=== PATIENT | male | born 1940 | race Caucasian/White ===

== ENCOUNTER 2017-03-19 17:06 | Observation (INO) | payer OTHER ==
[~2017-03-19] VITALS: Ht 185.4 cm; Wt 106.4 kg
[~2017-03-19 17:06] MED LIST: ACTOS30 MG PO; ALLEGRA180 MG PO; AMBIEN10 MG PO; AMLODIPINE BESYL5 MG PO; ANUSOL HC,ANUCO25 MG PR; ASPIRIN81 M1 PO; ATENOLOL25 M1 PO; Aspirin E.C. PO; BENAZEPRIL HCL PO; BENAZEPRIL HCL40 MG PO; CARDURA2 M1 PO; CARDURA2 MG PO; CARDURA4 MG PO; CARVEDILOL25 MG PO; COREG6.25 MG PO; COSOPT EYE DROPS5 ML BOTH EYES; Carvedilol PO; Combigan Ophth Soln; DOXYCYCLINE HYCLATE PO; GLUCOPHAGE500 MG PO; HALFPRIN162 MG PO; JOCK ITCH15 GM TP; LO-DOSE ASPIRIN81 M1 PO; LOTENSIN40 MG PO; LYRICA50 MG PO; METFORMIN HCL500 MG PO; Metformin HCl PO; Norvasc PO; PAROXETINE HCL PO; PAROXETINE HCL20 MG PO; PAROXETINE HCL40 MG PO; PAXIL20 MG PO; PAXIL40 MG PO; PLAVIX75 MG PO; PRAVACHOL40 MG PO; PRAVACHOL80 MG PO; PRAVASTATIN SOD40 MG PO; Pravastatin Sodium PO; SOMA350 MG PO; VALIUM5 MG PO; Valium PO
[2017-03-19 18:57] LABS: HEMATOCRIT 41.6 % (38.0-50.0); HEMOGLOBIN 14.2 G/DL (12.5-16.6); MCH 32.6 PG (29.0-34.0); MCHC 34.1 G/DL (30.0-36.0); MCV 95.6 FL (86-99); PLATELET COUNT 134 K/uL (156-360); RBC DIS.WIDTH-CV 13.5 % (11.8-14.6); RBC DIS.WIDTH-SD 47.5 % (39-53); RED BLOOD COUNT 4.35 M/uL (4.00-5.50); WHITE BLOOD COUNT 7.4 K/uL (4.1-10.2)
[2017-03-19 19:09] LABS: CHLORIDE 104 mEq/L (99-109); POTASSIUM 4.7 mEq/L (3.7-5.4); SODIUM 140 mEq/L (136-147)
[2017-03-19 19:11] LABS: GLUCOSE 103 mg/dL (70-99)
[2017-03-19 19:13] LABS: TOTAL BILIRUBIN 0.8 mg/dL (0.0-1.0)
[2017-03-19 19:14] LABS: ALKALINE PHOSPHATASE 58 IU/L (3-129)
[2017-03-19 19:15] LABS: CREATININE 1.7 mg/dL (0.6-1.3); GFR ESTIMATE (CALCULATED) 42 mL/min/ (58.99-99999)
[2017-03-19 19:16] LABS: AST (GOT) 34 IU/L (2-34); UREA NITROGEN (BUN) 26 mg/dL (9-23)
[2017-03-19 19:17] LABS: ALT (GPT) 33 IU/L (3-49)
[2017-03-19 19:18] LABS: LIPASE 33 U/L (1.0-51.0)
[2017-03-19 19:39] LABS: APPEARANCE CLEAR ((CLEAR)); BILIRUBIN NEGATIVE; BLOOD NEGATIVE; COLOR YELLOW ((YELLOW)); GLUCOSE (STRIP) NEGATIVE; KETONES NEGATIVE; LEUKOCYTES NEGATIVE; NITRITE NEGATIVE; PROTEIN (STRIP) 30; SPECIFIC GRAVITY 1.021 (1.000-1.030); UCUL ADDED? NO; UROBILINOGEN 0.2 MG/DL (0.2-1.0)
[2017-03-19] MEDS ORDERED: CARVEDILOL25 MG PO (21:14)
[2017-03-19] MEDS ORDERED: ADULT ASPIRIN R81 MG PO (21:15)
[2017-03-19] MEDS ORDERED: METFORMIN HCL500 MG PO (21:15)
[2017-03-19] MEDS ORDERED: ELIQUIS5 MG PO (21:16)
[2017-03-19] MEDS ORDERED: PRESERVISION T1 EACH PO (21:16)
[2017-03-19] MEDS ORDERED: VITAMIN D PO (21:16)
[2017-03-19] MEDS ORDERED: ZYRTEC10 M3 PO (21:16)
[2017-03-20 01:52] LABS: HEMATOCRIT 39.3 % (38.0-50.0); HEMOGLOBIN 13.5 G/DL (12.5-16.6); MCV 94.2 FL (86-99)
[2017-03-20 02:03] LABS: CHLORIDE 108 mEq/L (99-109); POTASSIUM 3.8 mEq/L (3.7-5.4); SODIUM 139 mEq/L (136-147)
[2017-03-20 02:05] LABS: GLUCOSE 102 mg/dL (70-99)
[2017-03-20 02:08] LABS: CREATININE 1.4 mg/dL (0.6-1.3); GFR ESTIMATE (CALCULATED) 53 mL/min/ (58.99-99999)
[2017-03-20 02:09] LABS: UREA NITROGEN (BUN) 23 mg/dL (9-23)
[2017-03-20 02:23] VITALS: BP 175/82
[2017-03-20 07:45] VITALS: BP 182/88
[2017-03-20 09:36] LABS: HEMOGLOBIN 13.8 G/DL (12.5-16.6); MCH 32.2 PG (29.0-34.0); MCHC 33.7 G/DL (30.0-36.0); MCV 95.6 FL (86-99); PLATELET COUNT 127 K/uL (156-360); RBC DIS.WIDTH-CV 13.6 % (11.8-14.6); RBC DIS.WIDTH-SD 48.3 % (39-53); RED BLOOD COUNT 4.29 M/uL (4.00-5.50); WHITE BLOOD COUNT 4.8 K/uL (4.1-10.2)
[2017-03-20 10:09] LABS: CHLORIDE 105 MEQ/L (99-109); CREATININE 1.5 MG/DL (0.6-1.3); GFR ESTIMATE (CALCULATED) 48 mL/min/ (58.99-99999); GLUCOSE 115 mg/dL (70-99); POTASSIUM 4.1 MEQ/L (3.7-5.4); SODIUM 141 MEQ/L (136-147); UREA NITROGEN (BUN) 22 mg/dL (9-23)
[2017-03-20 11:56] VITALS: BP 156/78
[2017-03-20] MEDS ORDERED: ANUSOL HC,ANUCO25 MG PR (12:43)
== END 2017-03-20 14:15 | disposition home or self-care (01) ==
LOC: RME 17:06 → EME 17:06 → EDOF 03-20 01:20 → ENRESERV 03-20 01:32 → 5WEST 03-20 02:04
PROVIDERS: Hospitalist
DX: K62.5 Hemorrhage of anus and rectum (principal); R19.7 Diarrhea, unspecified; R11.2 Nausea with vomiting, unspecified; R10.32 Left lower quadrant pain; K64.8 Other hemorrhoids; I48.91 Unspecified atrial fibrillation; Z79.01 Long term (current) use of anticoagulants; N17.9 Acute kidney failure, unspecified; E11.22 Type 2 diabetes mellitus with diabetic chronic kidney disease; I25.10 Atherosclerotic heart disease of native coronary artery without angina pectoris; I25.2 Old myocardial infarction; I12.9 Hypertensive chronic kidney disease with stage 1 through stage 4 chronic kidney disease, or unspecified chronic kidney disease; N18.3 Chronic kidney disease, stage 3 (moderate); E11.40 Type 2 diabetes mellitus with diabetic neuropathy, unspecified; D69.6 Thrombocytopenia, unspecified; E78.5 Hyperlipidemia, unspecified; H40.9 Unspecified glaucoma; Z85.46 Personal history of malignant neoplasm of prostate; Z85.820 Personal history of malignant melanoma of skin; Z92.3 Personal history of irradiation; Z83.3 Family history of diabetes mellitus; Z82.49 Family history of ischemic heart disease and other diseases of the circulatory system
CPT/HCPCS: 74176; 80048; 80048 91; 80053; 81003; 83605; 83690; 85014; 85018; 85027; 99281; 99284; G0378

== ENCOUNTER → 2017-04-02 | Outpatient (CLI) | payer OTHER ==
[~2017-04-02] VITALS: Ht 185.4 cm; Wt 106.6 kg
[~2017-04-02] MED LIST changes: +ADULT ASPIRIN R81 MG PO; +ELIQUIS5 MG PO; +PRESERVISION T1 EACH PO; +VITAMIN D PO; +ZYRTEC10 M3 PO
== END | disposition home or self-care (01) ==
LOC: AMB 11:00
PROVIDERS: Internal Medicine Gastroenterology
DX: K62.7 Radiation proctitis (principal); D12.2 Benign neoplasm of ascending colon; K64.8 Other hemorrhoids; K64.4 Residual hemorrhoidal skin tags; Z85.46 Personal history of malignant neoplasm of prostate; E11.9 Type 2 diabetes mellitus without complications; E78.5 Hyperlipidemia, unspecified; I10 Essential (primary) hypertension; Z79.82 Long term (current) use of aspirin; Z79.01 Long term (current) use of anticoagulants; Z79.84 Long term (current) use of oral hypoglycemic drugs
CPT/HCPCS: 82948; 88305